=== PATIENT | female | born 1945 | race Caucasian/White ===

== ENCOUNTER 2017-07-04 13:06 | Observation (INO) | payer MEDICARE, SELFPAY | END 2017-07-06 12:15 | disposition home or self-care (01) | PROVIDERS: Admitting Provider Internal Medicine Adolescent Medicine; Emergency Provider Emergency Medicine; Family Provider Internal Medicine Adolescent Medicine; Visit Provider Internal Medicine Adolescent Medicine | DX: J44.1 Chronic obstructive pulmonary disease with (acute) exacerbation; R06.09 Other forms of dyspnea; I13.0 Hypertensive heart and chronic kidney disease with heart failure and stage 1 through stage 4 chronic kidney disease, or unspecified chronic kidney disease; I50.30 Unspecified diastolic (congestive) heart failure; N18.9 Chronic kidney disease, unspecified; E11.22 Type 2 diabetes mellitus with diabetic chronic kidney disease; Z79.4 Long term (current) use of insulin; J06.9 Acute upper respiratory infection, unspecified; G47.33 Obstructive sleep apnea (adult) (pediatric); J98.11 Atelectasis | CPT/HCPCS: 36415; 71010; 71020; 80048; 80053; 82803; 82962; 83605; 83880; 84484; 85025; 87040; 87070; 87275; 87276; 87430; 93005; 94640; 94760; 96365; 96367; 99285; G0378; J2405 ==

== ENCOUNTER 2017-07-13 20:52 | Observation (INO) | payer MEDICARE, SELFPAY ==
[2017-07-13 20:57] VITALS: BP 144/102; PULSE 76; RESP 26; TEMP 37.1; O2SAT 94; BMI 40.2
--- NOTE | 2017-07-13 21:20 | XR_ITS ---
XR chest 2V HISTORY: Cough and shortness of air ITS.REASON: SOA ORDERING PHYSICIAN: Haim Adams MD PATIENT AGE: 71 years COMPARISON: 07/05/2017 FINDINGS: The cardiomediastinal silhouette and pulmonary vascularity are within normal limits. No lobar consolidation or collapse. Previously described airspace disease no longer apparent. Faint nodular opacity is present in the left upper lobe measuring 9 mm. While this may be due to summation artifact, a developing nodule is also a consideration. There was a calcified granuloma in the left upper lobe on the previous CT scan of 12/04/2014 however this was more inferior than this nodule. The remaining lungs are clear... No acute bony abnormalities. IMPRESSION: 1. No acute airspace disease. 2. Possible developing left upper lobe nodule. CT or follow-up radiograph may be of further value for confirmation
[2017-07-13 21:33] LABS: Basophils % 0.3 % (0.1-2.0); Eosinophils # 0.1 K/mm3 (0.0-0.4); Eosinophils % 1.2 % (0.1-12.0); Hematocrit 40.2 % (37.0-47.0); Hemoglobin 13.3 g/dL (12.2-16.2); Lymphocytes # 1.4 K/mm3 (0.7-4.5); Lymphocytes % 19.4 K/mm3 (10-50); Mean Corpuscular HGB Conc 33.2 g/dL (31.8-35.4); Mean Corpuscular Hemoglobin 32.6 pg (27.0-31.2); Mean Corpuscular Volume 98.1 fl (81-99); Mean Platelet Volume 8.7 fl (7.4-10.4); Monocytes # 0.5 K/mm3 (0.1-1.0); Monocytes % 6.5 % (1.7-9.3); Neutrophils % 72.5 % (37.0-80.0); Platelet Count 154 K/mm3 (142-424); Red Cell Distribution Width 13.9 % (11.5-17.5); White Blood Count 6.9 K/mm3 (4.8-10.8)
[2017-07-13 21:44] LABS: Alanine Aminotransferase 18 U/L (12-78); Albumin Level 2.8 gm/dL (3.4-5.0); Albumin/Globulin Ratio 0.6 (1.1-1.8); Alkaline Phosphatase 156 U/L (46-116); Amylase 46 U/L (25-125); Anion Gap 11.6 mEq/L (5-15); Aspartate Amino Transferase 17 U/L (15-37); Bilirubin,Total 0.8 mg/dL (0.2-1.0); Blood Urea Nitrogen 14 mg/dL (7-18); Calcium 8.7 mg/dL (8.5-10.1); Carbon Dioxide 27 mmol/L (21.0-32.0); Chloride 100 mmol/L (98-107); Creatinine Clearance Estimated 62 mg/ml (0-300); Creatinine,Serum 1.34 mg/dL (0.55-1.02); Estimated Glomerular Filt Rate 39 ml/min (>60); GFR (African American) 47 ML/MIN (>60); Globulin 4.8 gm/dl (1.3-3.2); Glucose 115 mg/dL (74-106); Lipase 135 u/L (73-393); Potassium 4.6 mmoL/L (3.5-5.1); Sodium 134 mmol/L (136-145); Total Protein,Serum 7.6 gm/dL (6.4-8.2)
--- NOTE | 2017-07-13 21:55 | HMH.EDSOB ---
ED Disposition Clinical Impression: Drug-induced nausea and vomiting Disposition: Admitted as Observation Condition on Discharge: Good Instructions: DI for Diarrhea and Traveler's Diarrhea -- Adult, DI for Diarrhea and Traveler's Diarrhea -- Child, DI for Nausea -- Adult, DI for Nausea -- Child, Nausea and Vomiting-Adult Referrals: Haim Adams MD [Primary Care Provider] - - Critical Care Critical Care Time: No Attestation: On 07/13/17, the high probability of a clinically significant, sudden or life threatening deterioration of the following system(s) required my full and direct attention, intervention and personal management. The time I documented below is in addition to time spent performing reported procedures but includes the following listed in this critical care notation. Medical Decision Making - Medical Records Medical records reviewed: Yes: I reviewed the patient's medical records. Vital Signs: 07/13/17 20:57 Temperature 98.8 F Temperature Source Oral Pulse Rate [Brachial] 76 Respiratory Rate 26 H Blood Pressure [Right Arm] 144/102 Blood Pressure Mean [Right Arm] 116 Blood Pressure Position [Right Arm] Sitting 02 Sat by Pulse Oximetry 94 L Oxygen Delivery Method Room Air - Lab Data Lab results reviewed: Yes: I reviewed the patient's lab results. Lab Results 07/13/17 21:20: WBC 6.9, RBC 4.10 L, Hgb 13.3, Hct 40.2, MCV 98.1, MCH 32.6 H, MCHC 33.2, RDW 13.9, Plt Count 154, MPV 8.7, Neut % (Auto) 72.5, Lymph % (Auto) 19.4, [place] % (Auto) 6.5, Eos % (Auto) 1.2, Baso % (Auto) 0.3, Neut # (Auto) 5.0, Lymph # (Auto) 1.4, [place] # (Auto) 0.5, Eos # (Auto) 0.1, Baso # (Auto) 0.0 07/13/17 21:20: Sodium 134 L, Potassium 4.6, Chloride 100, Carbon Dioxide 27, Anion Gap 11.6, BUN 14, Creatinine 1.34 H, Estimated Creat Clear 62, Estimated GFR 39 L, Est GFR ( Amer) 47 L, Glucose 115 H, Calcium 8.7, Total Bilirubin 0.8, AST 17, ALT 18, Alkaline Phosphatase 156 H, Total Protein 7.6, Albumin 2.8 L, Globulin 4.8 H, Albumin/Globulin Ratio 0.6 L, Amylase 46, Lipase 135 07/13/17 21:20: Troponin I < 0.02 07/13/17 22:00: Urine Color Yellow, Urine Appearance Clear, Urine pH 7.0, Ur Specific [place] 1.010, Urine Protein Negative, Urine Glucose (UA) Negative, Urine Ketones Trace, Urine Blood Negative, Urine Nitrate Negative, Urine Bilirubin Negative, Urine Urobilinogen 2.0, Ur Leukocyte Esterase Negative, Urine WBC 3-5, Ur Squamous Epith Cells 3-5, Urine Bacteria 1+ Result diagrams: 07/13/17 21:20 07/13/17 21:20 Orders (Tests/Meds): ED MEDICATIONS Discontinued Medications Generic Name Dose Route Start Last Admin Trade Name Rashardq PRN Reason Stop Dose Admin Ondansetron HCl 4 mg 07/13/17 21:20 07/13/17 21:30 Zofran 4mg/2ml Vial IV 07/13/17 21:21 4 mg ONCE ONE Administration Sodium Chloride 0 ml 07/13/17 21:20 07/13/17 21:32 Sod Chloride 0.9% 1000ml Bag IV 07/13/17 21:21 1,000 ml BOLUS ONE Administration ORDERS Category Date Time Status XR chest 2V Stat Exams 07/13/17 21:20 Taken - Radiology Data #1 Image Reviewed: Yes I reviewed the patient's radiology results Preliminary Findings: Normal/NAD - ECG Data Tracing #1 I reviewed this ECG and interpreted as documented below: ECG initial impression date: 07/13/17 ECG initial impression time: 22:22 Ischemic changes: non-specific ST-T wave changes - Physician Consults Physician Consulted: soy Reason -: Admission - Suhail Inquiry Pt receiving controlled substance: No Resp/SOB HPI - General Chief Complaint: Nausea/Vomiting/Diarrhea Stated Complaint: vomiting X2 days Time Seen by Provider: 07/13/17 21:55 Mode of Arrival: Wheelchair Source of Information: Patient, Relative, Medical Record Limitations: No Limitations Description of Symptoms (Recalled from ER Triage Doc. by RN): PT COMES INTO THE ER C/O N/V, SOA - History of Present Illness pt with recent admit with copd on abx - minocycline and has
--- NOTE | 2017-07-13 21:58 | ED_ITS ---
ED Disposition Clinical Impression: Drug-induced nausea and vomiting Disposition: Admitted as Observation Condition on Discharge: Good Instructions: DI for Diarrhea and Traveler's Diarrhea -- Adult, DI for Diarrhea and Traveler's Diarrhea -- Child, DI for Nausea -- Adult, DI for Nausea -- Child, Nausea and Vomiting-Adult Referrals: Haim Adams MD [Primary Care Provider] - - Critical Care Critical Care Time: No Attestation: On 07/13/17, the high probability of a clinically significant, sudden or life threatening deterioration of the following system(s) required my full and direct attention, intervention and personal management. The time I documented below is in addition to time spent performing reported procedures but includes the following listed in this critical care notation. Medical Decision Making - Medical Records Medical records reviewed: Yes: I reviewed the patient's medical records. Vital Signs: 07/13/17 20:57 Temperature 98.8 F Temperature Source Oral Pulse Rate [Brachial] 76 Respiratory Rate 26 H Blood Pressure [Right Arm] 144/102 Blood Pressure Mean [Right Arm] 116 Blood Pressure Position [Right Arm] Sitting 02 Sat by Pulse Oximetry 94 L Oxygen Delivery Method Room Air - Lab Data Lab results reviewed: Yes: I reviewed the patient's lab results. Lab Results 07/13/17 21:20: WBC 6.9, RBC 4.10 L, Hgb 13.3, Hct 40.2, MCV 98.1, MCH 32.6 H, MCHC 33.2, RDW 13.9, Plt Count 154, MPV 8.7, Neut % (Auto) 72.5, Lymph % (Auto) 19.4, [place] % (Auto) 6.5, Eos % (Auto) 1.2, Baso % (Auto) 0.3, Neut # (Auto) 5.0 , Lymph # (Auto) 1.4, [place] # (Auto) 0.5, Eos # (Auto) 0.1, Baso # (Auto) 0.0 07/13/17 21:20: Sodium 134 L, Potassium 4.6, Chloride 100, Carbon Dioxide 27, Anion Gap 11.6, BUN 14, Creatinine 1.34 H, Estimated Creat Clear 62, Estimated GFR 39 L, Est GFR ( Amer) 47 L, Glucose 115 H, Calcium 8.7, Total Bilirubin 0.8, AST 17, ALT 18, Alkaline Phosphatase 156 H, Total Protein 7.6, Albumin 2.8 L, Globulin 4.8 H, Albumin/Globulin Ratio 0.6 L, Amylase 46, Lipase 135 07/13/17 21:20: Troponin I < 0.02 07/13/17 22:00: Urine Color Yellow, Urine Appearance Clear, Urine pH 7.0, Ur Specific [place] 1.010, Urine Protein Negative, Urine Glucose (UA) Negative, Urine Ketones Trace, Urine Blood Negative, Urine Nitrate Negative, Urine Bilirubin Negative, Urine Urobilinogen 2.0, Ur Leukocyte Esterase Negative, Urine WBC 3-5, Ur Squamous Epith Cells 3-5, Urine Bacteria 1+ Result diagrams: 07/13/17 21:20 07/13/17 21:20 Orders (Tests/Meds): ED MEDICATIONS Discontinued Medications Generic Name Dose Route Start Last Admin Trade Name Freq PRN Reason Stop Dose Admin Ondansetron HCl 4 mg 07/13/17 21:20 07/13/17 21:30 Zofran 4mg/2ml Vial IV 07/13/17 21:21 4 mg ONCE ONE Administration Sodium Chloride 0 ml 07/13/17 21:20 07/13/17 21:32 Sod Chloride 0.9% 1000ml Bag IV 07/13/17 21:21 1,000 ml BOLUS ONE Administration ORDERS Category Date Time Status XR chest 2V Stat Exams 07/13/17 21:20 Taken - Radiology Data #1 Image Reviewed: Yes I reviewed the patient's radiology results Preliminary Findings: Normal/NAD - ECG Data Tracing #1 I reviewed this ECG and interpreted as documented below: ECG initial impression date: 07/13/17 ECG initial impression time: 22:22 Ischemic changes: non-specific ST-T wav
[2017-07-13 22:11] LABS: Microscopic, Urine URINE MICROSCOPIC (MICROSCOPIC)
[2017-07-13 22:13] LABS: Appearance,Urine CLEAR (Clear); Blood, Urine Negative (Negative); Color,Urine YELLOW (Yellow); Glucose,Urine (UA) Negative (Negative); Ketones,Urine TRACE (Negative); Leukocyte Esterase,Urine Negative (Negative); Nitrate,Urine Negative (Negative); Protein,Urine Negative (Negative)
[2017-07-13 22:17] LABS: Troponin I < 0.02 ng/ml (0.00-0.06)
[2017-07-13 22:30] LABS: Bacteria,Urine 1+ /lpf; Bilirubin,Urine Negative (Negative)
--- NOTE | 2017-07-13 22:57 | PC.NURSE ---
ON THE PHONE WITH AT THIS TIME
[2017-07-13 23:23] VITALS: BP 110/55; PULSE 69; RESP 18; TEMP 37; O2SAT 98
[2017-07-14] VITALS (9 sets, daily range): BP systolic 106–142; BP diastolic 37–88; PULSE 48–82; RESP 16–20; TEMP 36.1–36.9; O2SAT 91–97; BMI 40.6
[2017-07-14 07:09] LABS: Blood Urea Nitrogen 12 mg/dL (7-18); Carbon Dioxide 26 mmol/L (21.0-32.0); Chloride 105 mmol/L (98-107); Creatinine Clearance Estimated 69 mg/ml (0-300); Creatinine,Serum 1.19 mg/dL (0.55-1.02); Estimated Glomerular Filt Rate 45 ml/min (>60); GFR (African American) 54 ML/MIN (>60); Glucose 87 mg/dL (74-106); Sodium 136 mmol/L (136-145)
[2017-07-14 07:14] LABS: Basophils % 0.2 % (0.1-2.0); Eosinophils # 0.1 K/mm3 (0.0-0.4); Eosinophils % 1.9 % (0.1-12.0); Hematocrit 35.1 % (37.0-47.0); Lymphocytes # 1.4 K/mm3 (0.7-4.5); Lymphocytes % 31.8 K/mm3 (10-50); Mean Corpuscular HGB Conc 32.1 g/dL (31.8-35.4); Mean Corpuscular Hemoglobin 31.7 pg (27.0-31.2); Mean Corpuscular Volume 98.7 fl (81-99); Monocytes # 0.3 K/mm3 (0.1-1.0); Monocytes % 7.1 % (1.7-9.3); Neutrophils # 2.5 K/mm3 (1.8-7.8); Neutrophils % 58.9 % (37.0-80.0); Platelet Count 113 K/mm3 (142-424); Red Blood Count 3.55 M/mm3 (4.20-5.40); Red Cell Distribution Width 13.9 % (11.5-17.5); White Blood Count 4.3 K/mm3 (4.8-10.8)
[2017-07-14 07:52] LABS: Hemoglobin 11.2 g/dL (12.2-16.2)
--- NOTE | 2017-07-14 08:39 | HMH.HP ---
*Admission Date: 07/13/17 *Chief complaint: vomiting *History of present illness: 71 year old female who was discharged was discharged 07/05 from [facility] for COPD exacerbation presented to the ED with ongoing nausea and vomiting. She was sent home on doxycycline which has likely caused her GI upset. States I haven't been able to keep anything down since I went home. Reports persistent cough with minimal sputum production. States shortness of breath has improved. In the ED, CXR was obtained and negative for acute pathology. CBC was unremarkable. She was noted to be dehydrated with creatinine slightly elevated at 1.34. Patient was admitted for rehydration and further evaluation. [facility] History Medical History: Reports:: Diabetes Mellitus Type 2 - *Social History Alcohol Intake: never - Psychiatric History Expresses thoughts of harming self/others: None Suicide Plan Description: No Plan Review of Systems - Constitutional Reports body ache(s), Denies fever(s), Denies headache(s), Denies night sweats - Eyes Denies itchy eyes - ENT Reports dry mouth, Denies nasal congestion, Denies pain with swallowing, Denies sore throat - *Cardiovascular Reports shortness of breath causing sudden awakening, Denies chest pain, Denies leg sores, Denies radiating jaw, neck or arm pain - *Respiratory Reports cough, Reports shortness of breath - *Gastrointestinal Reports vomiting, Denies abdominal pain, Denies change in bowel habits, Denies constipation, Denies loose stools - *Genitourinary Denies difficulty urinating, Denies blood in urine - *Musculoskeletal Denies joint pain, Denies muscle cramps - Integumentary/Breasts Denies dry skin, Denies new lesions - *Neurologic Reports weakness, Denies seizure-like activity, Denies dizziness, Denies tingling/numbness/burning sensations - Psychiatric Denies abnormal sleep pattern, Denies behavioral changes, Denies irritability, Denies memory loss - Endocrine Denies rapid, pounding, or irregular heartbeat, Denies increased hunger, Denies increased urination - Hematologic/Lymphatic Denies easy bleeding, Denies enlarged lymph nodes - Allergic/Immunologic Denies itchy eyes, Denies lip swelling, Denies seasonal runny nose Meds Home Medications Medication Instructions Recorded Confirmed Type Carvedilol [Carvedilol 12.5mg Tab] 12.5 mg PO DAILY 07/13/17 07/13/17 History Docusate Sodium [Colace 250mg 200 mg PO HS 07/13/17 07/13/17 History capsule] Furosemide [Lasix 80mg tablet] 80 mg PO DAILY 07/13/17 07/13/17 History Gabapentin [Gralise 600mg ER Tab] 600 mg PO DAILY 07/13/17 07/13/17 History raNITIdine HCl [Ranitidine HCl] 300 mg PO BID 07/13/17 07/13/17 History Allergies Allergy/AdvReac Type Severity Reaction Status Date / Time cyclobenzaprine Allergy Unknown RENAL Verified 07/13/17 21:11 [CYCLOBENZAPRINE] FAILURE hydromorphone [HYDROMORPHONE] Allergy Unknown Verified 07/13/17 21:11 pentazocine [PENTAZOCINE] Allergy Unknown Verified 07/13/17 21:11 Exam Vital signs and Labs for Last 24 Hours: Temp Pulse Resp BP Pulse Ox 97.0 F L 54 L 16 128/62 95 07/14/17 08:12 07/14/17 08:12 07/14/17 08:12 07/14/17 08:12 07/14/17 08:12 Short CBC 07/14/17 Range/Units 06:45 WBC 4.3 L D (4.8-10.8) K/mm3 Hgb 11.2 L D (12.2-16.2) g/dL Hct 35.1 L (37.0-47.0) % Plt Count 113 L D (142-424) K/mm3 BMP 07/14/17 06:45 Sodium 136 Potassium 4.0 Chloride 105 Carbon Dioxide 26 BUN 12 Creatinine 1.19 H Glucose 87 D no acute distress - *Routine HEENT Exam Head: Present: normocephalic Eye: Present: conjunctivae pink ENT: Present: mucous membranes moist - *Routine Neck Exam Present: supple - Routine Chest/Breast/Axilla Exam Comments: normal shape and expansion - *Routine Respiratory Exam Comments: scattered rhonchi on right, scattered wheezes, decent air movement - *Routine Cardiovascular Exam Present: RRR
--- NOTE | 2017-07-14 08:46 | P.HP_ITS ---
*Admission Date: 07/13/17 *Chief complaint: vomiting *History of present illness: 71 year old female who was discharged was discharged 07/05 from [facility] for COPD exacerbation presented to the ED with ongoing nausea and vomiting. She was sent home on doxycycline which has likely caused her GI upset. States I haven' t been able to keep anything down since I went home. Reports persistent cough with minimal sputum production. States shortness of breath has improved. In the ED, CXR was obtained and negative for acute pathology. CBC was unremarkable. She was noted to be dehydrated with creatinine slightly elevated at 1.34. Patient was admitted for rehydration and further evaluation. [facility] History Medical History: Reports:: Diabetes Mellitus Type 2 - *Social History Alcohol Intake: never - Psychiatric History Expresses thoughts of harming self/others: None Suicide Plan Description: No Plan Review of Systems - Constitutional Reports body ache(s), Denies fever(s), Denies headache(s), Denies night sweats - Eyes Denies itchy eyes - ENT Reports dry mouth, Denies nasal congestion, Denies pain with swallowing, Denies sore throat - *Cardiovascular Reports shortness of breath causing sudden awakening, Denies chest pain, Denies leg sores, Denies radiating jaw, neck or arm pain - *Respiratory Reports cough, Reports shortness of breath - *Gastrointestinal Reports vomiting, Denies abdominal pain, Denies change in bowel habits, Denies constipation, Denies loose stools - *Genitourinary Denies difficulty urinating, Denies blood in urine - *Musculoskeletal Denies joint pain, Denies muscle cramps - Integumentary/Breasts Denies dry skin, Denies new lesions - *Neurologic Reports weakness, Denies seizure-like activity, Denies dizziness, Denies tingling/numbness/burning sensations - Psychiatric Denies abnormal sleep pattern, Denies behavioral changes, Denies irritability, Denies memory loss - Endocrine Denies rapid, pounding, or irregular heartbeat, Denies increased hunger, Denies increased urination - Hematologic/Lymphatic Denies easy bleeding, Denies enlarged lymph nodes - Allergic/Immunologic Denies itchy eyes, Denies lip swelling, Denies seasonal runny nose Meds Home Medications Medication Instructions Recorded Confirmed Type Carvedilol [Carvedilol 12.5mg Tab] 12.5 mg PO DAILY 07/13/17 07/13/17 History Docusate Sodium [Colace 250mg 200 mg PO HS 07/13/17 07/13/17 History capsule] Furosemide [Lasix 80mg tablet] 80 mg PO DAILY 07/13/17 07/13/17 History Gabapentin [Gralise 600mg ER Tab] 600 mg PO DAILY 07/13/17 07/13/17 History raNITIdine HCl [Ranitidine HCl] 300 mg PO BID 07/13/17 07/13/17 History Allergies Allergy/AdvReac Type Severity Reaction Status Date / Time cyclobenzaprine Allergy Unknown RENAL Verified 07/13/17 21:11 [CYCLOBENZAPRINE] FAILURE hydromorphone [HYDROMORPHONE] Allergy Unknown Verified 07/13/17 21:11 pentazocine [PENTAZOCINE] Allergy Unknown Verified 07/13/17 21:11 Exam Vital signs and Labs for Last 24 Hours: Temp Pulse Resp BP Pulse Ox 97.0 F L 54 L 16 128/62 95 07/14/17 08:12 07/14/17 08:12 07/14/17 08:12 07/14/17 08:12 07/14/17 08:12 Short CBC 07/14/17 Range/Units 06:45 WBC 4.3 L D (4.8-10.8) K/mm3 Hgb 11.2 L D (12.2-16.2) g/dL Hct 35.1 L (37.0-47.0)
--- NOTE | 2017-07-14 09:19 | PC.NURSE ---
Spoke with pain management regarding patients pain pump bolus. Pain management states pt is ok to bolus self.
--- NOTE | 2017-07-14 09:38 | CARE MANAGER ---
MS NOWAK WAS ADMITTED WITH WEAKNESS AND NAUSEA/VOMITING. SHE IS A CHRONIC PAIN PERSON WHO AT TIMES TAKES TOO MUCH OF HER PAIN MEDS RESULTING IN ISSUES WITH HER GI TRACT. SHE IS ADMITTED TO [facility] FOR MONITORING,IVF'S,IV ANTIEMETICS,CONTROL OF PAIN MEDS AND DIET RESTRICTIONS. IF ALL GOES WELL SHE MAY BE ABLE TO BE DISCHARGED IN 1-2 DAYS. CM STAFF WILL CONTINUE TO MONITOR AND ASSIST NEEDED.
--- NOTE | 2017-07-14 10:04 | P.CONPHA_ITS ---
[facility] Pharmacy VTE Monitoring - Patient Demographics Admission date: 07/13/17 Report Date: 07/14/17 Time: 10:03 Allergies/Adverse Reactions: cyclobenzaprine [CYCLOBENZAPRINE] Allergy (Unknown, Verified 07/13/17 21:11) RENAL FAILURE hydromorphone [HYDROMORPHONE] Allergy (Unknown, Verified 07/13/17 21:11) pentazocine [PENTAZOCINE] Allergy (Unknown, Verified 07/13/17 21:11) Height: 1.57 m Weight: 99.904 kg Patient Problems: Current Active Problems Drug-induced nausea and vomiting (Acute) Dehydration (Acute) COPD exacerbation (Acute) - VTE Risk Labs: VTE Related Lab Results Hgb 11.2 g/dL (12.2-16.2) L D 07/14/17 06:45 Hct 35.1 % (37.0-47.0) L 07/14/17 06:45 Plt Count 113 K/mm3 (142-424) L D 07/14/17 06:45 BUN 12 mg/dL (7-18) 07/14/17 06:45 Creatinine 1.19 mg/dL (0.55-1.02) H 07/14/17 06:45 Estimated Creat Clear 69 mg/ml (0-300) 07/14/17 06:45 Was VTE Risk Assessment Performed: Yes VTE Score: 4 VTE Risk Level: Low Risk - Prophylaxis Types of VTE Prophylaxis: TEDS Knee High Location of Applied Device: Bilateral Lower Extremeties
[2017-07-14 12:08] LABS: POC Glucose,Bedside 95 mg/dL
--- NOTE | 2017-07-14 15:54 | PC.NURSE ---
Lungs diminished. Pt remains on 2l nasal cannula with no distress noted. Breathing is even and non labored. Pt reports nausea. Treated with zofran q6hr per mar with some relief reported. Pt denied any vomiting. She has ambulated to and from bathroom with standby assist. Tolerating clear diet thus far. Will continue to monitor.
[2017-07-14 16:43] LABS: POC Glucose,Bedside 70 mg/dL
[2017-07-15 00:11] VITALS: PULSE 47
[2017-07-15 00:20] LABS: POC Glucose,Bedside 154 mg/dL
[2017-07-15 04:00] VITALS: BP 106/41; PULSE 56; RESP 20; TEMP 36.6; O2SAT 96
--- NOTE | 2017-07-15 04:42 | PC.NURSE ---
PATIENT HAS SLEPT SOME THIS SHIFT. SHE C/O DIARRHEA EARLIER IN THE DAY AND REQUESTED SOMETHING FOR IT. MD WAS NOTIFIED AND TO WAS GIVEN TO OBTAIN STOOL SPECIMEN. PATIENT WAS INFORMED OF THIS AND VERBALIZED UNDERSTANDING. SHE HAS NOT HAD ANY DIARRHEA EPISODES SINCE THE ORDER FOR THE PCR WAS OBTAINED. SHE HAS ONLY HAD C/O NAUSEA X1 AND RECEIVED ZOFRAN WHICH SHE STATED WAS EFFECTIVE. SHE ALSO C/O DISCOMFORT TO HER BACK AND BLE AND WAS GIVEN TYLENOL X1. PATIENT HAS ALSO BOLUSED WITH HER IMPLANTED PAIN PUMP X2. PATIENT IS CURRENTLY SLEEPING IN BED. NO OTHER PROBLEMS NOTED AT THIS TIME. VSS. WILL CONTINUE TO MONITOR. SAFETY MEASURES IN PLACE, CALL LIGHT IN REACH.
[2017-07-15 06:25] VITALS: PULSE 56; O2SAT 90
[2017-07-15 06:36] LABS: POC Glucose,Bedside 81 mg/dL
[2017-07-15 08:00] VITALS: BP 114/51; PULSE 58; RESP 16; RESP 20; TEMP 36.6; O2SAT 95
--- NOTE | 2017-07-15 08:28 | P.DS_ITS ---
General - General Admission date: 07/13/17 Discharge date: 07/15/17 HPI HPI: 71-year-old white female with multiple medical problems including morbid obesity , COPD with oxygen requirement, and chronic narcotic dependence with opioid pain pump in place, who came to the emergency department with nausea and vomiting. In the emergency department her labs were normal but she was significantly afflicted by nausea and vomiting, admitted to hospital for clear liquid diet and supportive care. Please see H&P for details. Objective Vital signs: Temp Pulse Resp BP Pulse Ox 97.8 F 56 L 20 106/41 90 L 07/15/17 04:00 07/15/17 06:25 07/15/17 04:00 07/15/17 04:00 07/15/17 06:25 Narrative: Since discharge exam this morning reveals that she is pleasant, talkative, alert. Lungs have scattered rhonchi at her baseline, heart rate regular, abdomen soft but her morbid obesity limits her examination accuracy and complicates all aspects of her care. She has no jaundice, scleral icterus and appears well-hydrated. She is eating 100% of her breakfast. Hospital Course Hospital Course: Patient was admitted, placed on IV fluids, tolerated this well, Zofran was given for nausea. This improved slowly in a stepwise fashion. She had no evidence of leukocytosis and no fever, other testing was unremarkable. This morning she was improving, able to tolerate diet, no further nausea and she will be discharged home. She will follow-up in my office as scheduled 3 days. Results Labs on day of discharge: Labs from last 24 hours 07/15/17 07/14/17 07/14/17 06:14 20:54 16:32 POC Glucose 81 154 70 07/14/17 11:54 POC Glucose 95 DS: Diagnosis - Discharge Diagnosis (1) COPD exacerbation Status: Acute (2) Dehydration Status: Acute (3) Drug-induced nausea and vomiting Status: Acute Meds Home Medications Medication Instructions Recorded Confirmed Type Carvedilol [Carvedilol 12.5mg Tab] 12.5 mg PO DAILY 07/13/17 07/13/17 History Docusate Sodium [Colace 250mg 200 mg PO HS 07/13/17 07/13/17 History capsule] Furosemide [Lasix 80mg tablet] 80 mg PO DAILY 07/13/17 07/13/17 History Gabapentin [Gralise 600mg ER Tab] 600 mg PO DAILY 07/13/17 07/13/17 History raNITIdine HCl [Ranitidine HCl] 300 mg PO BID 07/13/17 07/13/17 History Allergies Allergy/AdvReac Type Severity Reaction Status Date / Time cyclobenzaprine Allergy Unknown RENAL Verified 07/13/17 21:11 [CYCLOBENZAPRINE] FAILURE hydromorphone [HYDROMORPHONE] Allergy Unknown Verified 07/13/17 21:11 pentazocine [PENTAZOCINE] Allergy Unknown Verified 07/13/17 21:11 Disposition Disposition: Home, Self-Care
--- NOTE | 2017-07-15 11:00 | CARE MANAGER ---
MS NOWAK IS DISCHARGING HOME WITH AFTERCARE INSTRUCTIONS.
[2017-07-15 11:26] LABS: POC Glucose,Bedside 125 mg/dL
== END 2017-07-15 12:30 | disposition home or self-care (01) ==
LOC: ER 23:03 → 2ND 23:18
PROVIDERS: Admitting Provider Internal Medicine Adolescent Medicine; Emergency Provider Emergency Medicine; Family Provider Internal Medicine Adolescent Medicine; PCP Internal Medicine Adolescent Medicine; Visit Provider Internal Medicine Adolescent Medicine
DX: J44.1 Chronic obstructive pulmonary disease with (acute) exacerbation (principal); R11.2 Nausea with vomiting, unspecified; T50.905A Adverse effect of unspecified drugs, medicaments and biological substances, initial encounter; E11.9 Type 2 diabetes mellitus without complications; E86.0 Dehydration; Z99.81 Dependence on supplemental oxygen
CPT/HCPCS: 36415; 71046; 80048; 80053; 81001; 82150; 82962; 83690; 84484; 85025; 93005; 93041; 94640; 94760; 94761; 99283; G0378; J2405

== ENCOUNTER 2017-07-27 13:16 | Day surgery (SDC) | payer MEDICARE, SELFPAY ==
[2017-07-27 13:58] VITALS: BP 116/53; PULSE 62; RESP 20; TEMP 36.6; O2SAT 95; BMI 37.5
--- NOTE | 2017-07-27 14:39 | HMH.PMPROC ---
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 Post-procedure Diagnosis:: Same Indications for Procedure:: Patient is a pleasant 71-year-old white female who we are treating for low back pain with lumbar radiculopathy symptoms and postlaminectomy syndrome. She currently has an intrathecal pain pump currently going at 1.75 mg per day. She is doing well with her intrathecal pain pump. She does not use her bolus as often as she should. We will refill her pump and continue her at 1.75 mg per day of intrathecal morphine. Procedure Details:: Informed consent was obtained and the risks and benefits of the procedure was explained to the patient. The patient was taken to the procedure room. The pump was interrogated. The area over the pump was prepped using ChloraPrep. The pump was accessed with a 22-gauge needle. Approximately 8 mL's of the intrathecal solution was withdrawn and discarded. The pump was then refilled with 20 mL's of intrathecal morphine 15 mg per ml. The pump was interrogated and the infusion was continued at 1.75 mg per day. The patient tolerated the procedure well with no complication. Plan and Disposition:: We will follow-up with her at her next pump refill. If she has any problems or questions she is to call us in the pain clinic.
[2017-07-27 14:44] VITALS: BP 136/63; PULSE 78; RESP 20; O2SAT 97
[2017-07-27 14:45] VITALS: BP 138/75; PULSE 88; RESP 20; O2SAT 98
[2017-07-27 15:15] VITALS: BP 128/62; PULSE 54; RESP 16; O2SAT 97
== END 2017-07-27 15:17 | disposition home or self-care (01) ==
LOC: SC.PAINP 13:18
PROVIDERS: Family Provider Internal Medicine Adolescent Medicine; PCP Internal Medicine Adolescent Medicine; Visit Provider Nurse Anesthetist, Certified Registered
DX: M51.16 Intervertebral disc disorders with radiculopathy, lumbar region (principal); M96.1 Postlaminectomy syndrome, not elsewhere classified
CPT/HCPCS: 95991

== ENCOUNTER → 2017-12-22 10:16 | Outpatient (CLI) | payer MEDICARE, SELFPAY ==
--- NOTE | 2017-12-22 10:25 | CA_ITS ---
PROCEDURE: 2-D M-mode and color Doppler study INDICATIONS FOR THE TEST: Chest pain COPD+ Heart Murmur Tobacco Smoking+ Palpitations Fatigue Syncope Edema+ Hypertension+Diabetes Mellitus+ Rheumatic Fever SOB+HOYT Obesity+Hyperlipidemia Family History HD+ Additional History home oxygen PATIENT INFORMATION HEIGHT: 62 WEIGHT: 230 GENDER: Female B/P: 106/41 2-D/M-MODE INTERPRETATION: 2-D MEASUREMENTS OBSERVED VALUES IN CMS Right Ventricular Dimension (RVDd) 2.1 Interventricular Septum (Thickness)(IVsd) 1.1 Left Ventricular Internal Dimensions(LVIDd) 3.3 Left Ventricular Posterior Wall (Thickness)(LVPWd) 1.1 Aortic Root 3.1 Aortic Cusp Separation 2.1 Left Atrial Dimensions (LAD) 3.2 2D 1. Left atrium is mildly enlarged, left ventricle is normal size, mild concentric left ventricular hypertrophy, visually estimated ejection fraction 55% with no obvious regional wall motion abnormality. 2. The right atrium and right ventricle are normal size and contractility. 3. The aortic valve is minimally thickened and fibrosed. 4. The mitral and tricuspid valve are grossly normal. 5. The pulmonic valve is poorly visualized. 6. No significant pericardial effusion noted. DOPPLER INTERROGATION: Doppler interrogation of the aortic, mitral and tricuspid valvular presence of mild mitral and tricuspid regurgitation, tricuspid and jet velocity insufficient for calculation of the right ventricular systolic pressure, grade 1 diastolic dysfunction seen with tissue Doppler evidence of raised left atrial pressure. CONCLUSION: 1. Left atrium is mildly enlarged, left ventricle is normal size, mild concentric left ventricular hypertrophy, visually estimated ejection fraction 55% with no obvious regional wall motion abnormality. Grade 1 diastolic dysfunction seen with tissue Doppler evidence of raised left atrial pressure. 2. Mild mitral and tricuspid regurgitation 3. No significant pericardial effusion noted.
[2017-12-22 11:02] LABS: Basophils % 0.8 % (0.1-2.0); Eosinophils # 0.2 K/mm3 (0.0-0.4); Eosinophils % 4.4 % (0.1-12.0); Hematocrit 39.3 % (37.0-47.0); Hemoglobin 12.9 g/dL (12.2-16.2); Lymphocytes # 1.4 K/mm3 (0.7-4.5); Lymphocytes % 31.8 K/mm3 (10-50); Mean Corpuscular HGB Conc 32.8 g/dL (31.8-35.4); Mean Corpuscular Hemoglobin 32.1 pg (27.0-31.2); Mean Corpuscular Volume 97.7 fl (81-99); Mean Platelet Volume 9.5 fl (7.4-10.4); Monocytes # 0.3 K/mm3 (0.1-1.0); Monocytes % 7.6 % (1.7-9.3); Neutrophils # 2.4 K/mm3 (1.8-7.8); Neutrophils % 55.4 % (37.0-80.0); Platelet Count 98 K/mm3 (142-424); Red Blood Count 4.02 M/mm3 (4.20-5.40); White Blood Count 4.3 K/mm3 (4.8-10.8)
[2017-12-22 11:41] LABS: Alanine Aminotransferase 21 U/L (12-78); Albumin Level 3.3 gm/dL (3.4-5.0); Albumin/Globulin Ratio 0.9 (1.1-1.8); Alkaline Phosphatase 176 U/L (46-116); Anion Gap 14.4 mEq/L (5-15); Aspartate Amino Transferase 25 U/L (15-37); Bilirubin,Total 0.6 mg/dL (0.2-1.0); Blood Urea Nitrogen 27 mg/dL (7-18); Calcium 8.7 mg/dL (8.5-10.1); Carbon Dioxide 32 mmol/L (21.0-32.0); Chloride 96 mmol/L (98-107); Chol/HDL Ratio 5.4 (1-3.5); Cholesterol 179 mg/dL (140-200); Creatinine,Serum 1.84 mg/dL (0.55-1.02); Estimated Glomerular Filt Rate 27 ml/min (>60); GFR (African American) 33 ML/MIN (>60); Globulin 3.5 gm/dl (1.3-3.2); Glucose 120 mg/dL (74-106); HDL Cholesterol 33 mg/dL (29-89); LDL Cholesterol 105 mg/dL (0-130); Magnesium 1.6 mg/dL (1.4-2.2); Potassium 4.4 mmoL/L (3.5-5.1); Sodium 138 mmol/L (136-145); Thyroid Stimulating Hormone 2.05 uIU/ml (0.358-3.740); Total Protein,Serum 6.8 gm/dL (6.4-8.2); Triglycerides 205 mg/dL (30-200); VLDL Cholesterol 41 mg/dL (0-40)
[2017-12-22 12:13] LABS: Hemoglobin A1C 6.8 % (0.0-7.0)
[2017-12-23 10:17] LABS: Creatinine, Urine 12.1 mg/dL (Not Estab.); Microalbumin, Urine <3.0 ug/mL (Not Estab.)
== END ==
PROVIDERS: Family Provider Internal Medicine Adolescent Medicine; PCP Internal Medicine Adolescent Medicine; Visit Provider Nurse Practitioner Family
DX: R06.02 Shortness of breath (principal); R60.9 Edema, unspecified; E11.42 Type 2 diabetes mellitus with diabetic polyneuropathy
CPT/HCPCS: 36415; 80053; 80061; 82043; 82570; 83036; 83735; 83880; 84443; 85025; 93306

== ENCOUNTER → 2018-04-03 11:06 | Outpatient (POV) | payer MEDICARE, SELFPAY ==
--- NOTE | 2018-04-03 11:36 | HMH.PMPROC ---
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 Patient patient is currently on a periodic flow of 0.25 mg every 2 hours. Patient denies any side effects to his her medication. Patient would like a slight increase in her rates her pain today a 6 out of 10. Physical Exam General: Alert and oriented x3, no acute distress, pleasant and cooperative, [on room air] Lungs: Resps E/U, Symmetrical chest expansion, Eyes: PERRL Musculoskeletal: Flexion and extension of lumbar spine somewhat guarded secondary to pain, deep tendon reflexes normal, strength in upper and lower extremities [5/5], [abnormal gait noted] Neurological: speech clear, sound printer equal, no gross sensory deficits Procedure Details:: Informed consent was obtained and the risk and benefits of the procedure were explained to the patient. The patient was taken to the procedure room where noninvasive monitoring was placed including noninvasive blood pressure cuff and pulse oximeter. Patient's pump was interrogated. The infusion rate was increased to 0.3 mg every 2 hours for total daily dose of 3.6 mg. The patient tolerated the procedure well. Plan and Disposition:: I will follow-up with the patient at her next intrathecal pain pump refill and reprogram. Patient has been instructed to call the office if she has any issues prior to her next appointment. This note was dictated using voice recognition software and may contain errors or omissions
== END ==
PROVIDERS: Family Provider Internal Medicine Adolescent Medicine; PCP Internal Medicine Adolescent Medicine; Visit Provider Clinical Nurse Specialist Family Health
DX: M51.16 Intervertebral disc disorders with radiculopathy, lumbar region (principal); M96.1 Postlaminectomy syndrome, not elsewhere classified
CPT/HCPCS: 62368

== ENCOUNTER 2018-04-26 11:00 | Outpatient (RCR) | payer MEDICARE, SELFPAY | END 2018-04-26 11:01 | disposition home or self-care (01) | LOC: PT 11:00 | PROVIDERS: Family Provider Internal Medicine Adolescent Medicine; PCP Internal Medicine Adolescent Medicine; Visit Provider Internal Medicine Adolescent Medicine | DX: I89.0 Lymphedema, not elsewhere classified (principal) | CPT/HCPCS: 97110; 97140; 97163; 97760 ==

== ENCOUNTER → 2018-07-24 15:12 | Outpatient (CLI) | payer MEDICARE, SELFPAY ==
--- NOTE | 2018-07-24 15:15 | MM_ITS ---
MM Dig screening mamm BI w/CAD CAD Screening COMPARISON: Digital mammograms with CAD 09/27/2016 and 06/02/2015 INDICATION: There is a history of breast cancer in patient's daughter diagnosed at age 39. TECHNIQUE: Standard CC and MLO images were obtained. R2 CAD reviewed. FINDINGS: The breasts are composed primarily of fat with minimal scattered fiber glandular densities in each breast. Positioning was somewhat difficult due to the fact the patient is in a wheelchair post previous stroke. Additional cc views and MLO views were obtained. There are few scattered benign-appearing microcalcifications in each breast. There is no suspicious lesion and there are no suspicious microcalcifications. IMPRESSION: Fatty type breast parenchyma with no suspicious lesion seen BI-RADS Category: 2 Benign Finding(s) RECOMMENDED FOLLOW-UP: 1YR - 1 YEAR FOLLOW-UP (A letter has been sent to the patient regarding results of the study.)
--- NOTE | 2018-07-24 15:16 | XR_ITS ---
XR DEXA axial skeleton HISTORY: ITS.REASON: OSTEOPAROSIS ORDERING PHYSICIAN: Denita Barrios PATIENT AGE: 72 years COMPARISON: 05/29/2014 FINDINGS: The BMD measured at the Left femoral neck is 0.650 g/cm squared with a T score of -2.8. This is considered Osteoporotic according to the World Health Organization criteria. Fracture risk is High. Treatment is advised. The bone density of the hips has increased by 3% compared to the previous exam IMPRESSION: Osteoporosis with high fracture risk. Treatment is advised. Recommend follow-up exam July 2019
== END ==
PROVIDERS: PCP Nurse Practitioner Family; Visit Provider Nurse Practitioner Family
DX: Z12.31 Encounter for screening mammogram for malignant neoplasm of breast (principal); Z13.820 Encounter for screening for osteoporosis; M81.0 Age-related osteoporosis without current pathological fracture
CPT/HCPCS: 77067; 77080

== ENCOUNTER 2018-11-29 10:00 | Outpatient (RCR) | payer MEDICARE, SELFPAY ==
--- NOTE | 2018-10-04 15:24 | HMH.PTOPWND ---
Rehab Outpt Wound Evaluation Rehab OP Wound Evaluation Start: 10/04/18 15:13 Freq: Status: Active Protocol: Document 10/04/18 15:15 PHOMARILIA (Rec: 10/04/18 15:24 PHORNE [id number]) Electronically Signed By Allen Busby, PT 10/04/18 15:15 Subjective/History History History Pt is a 72 yowf who presents with c/o juvenal LE edema for many years and new onset right lateral lower leg wound x ~ 1 mo. She reports hitting her leg on her w/c to cause her wound which they have been dressing at home and is very painful. Her family has been performing her compression wrapping at home which helps, but her edema has continued. She has hx of DM-II, HTN, COPD requiring supplemental O2 at night, CHF, and chronic back pain with intrathecal morphine pump. Wound Eval Wound Right Lateral Gleason Wound Type Puncture Is This a Chronic Wound No Wound Length (cm) 1.0 Wound Width (cm) 0.4 Wound Bed Appearance Fuig Wound Margins Description Well Defined Surrounding Tissue Appearance Fuig Edema Type Pitting Edema Degree 2+ Query Text:1+ Trace, Barely Detectable, Rebound 15-30 seconds 2+ Moderate, Slight Indentation, Rebound 10-20 seconds 3+ Deep, Deeper Indentation, Rebound > 30 seconds 4+ Very Deep, Rebound > 60 seconds Edema Appearance Weeping Tight Hard Surrounding Tissue Temperature Warm Drainage Description Serous Drainage Amount Small Wound Topical Solution/Irrigant Saline Irrigant Antibiotic Irrigant Primary Dressing Composite Dressing Change Patient Tolerance Tolerated Well Lymphedema Eval Classification of Lymphedema Secondary Lymphedema Yes Stemmer's sign Stemmer's Sign no Stage of Lymphedema Lymphedema stages Stage II (Pitting edema, increased fibrosis w/ decreased pitting) Skin Changes Dry Skin Yes Taut, Shiny Skin Yes Redness Yes Blisters Yes Wounds Yes
--- NOTE | 2018-11-08 10:19 | HMH.RHREAS ---
Rehab Reassessment Rehab OP Re-assessment Start: 11/08/18 10:16 Freq: Status: Active Protocol: Document 11/08/18 10:16 ERIKA (Rec: 11/08/18 10:19 ERIKA [id number]) Electronically Signed By Allen Busby, PT 11/08/18 10:16 Rehab Re-assessment Subjective Subjective Pt continues to c/o pain and tenderness throughout right lower leg. Objective Objective Notes Right lateral hinojosa wound: Length= 1.0 cm, Width= 0.5 cm Assessment Progress Assessment Slower Than Expected Assessment Notes Edema appears to be decreasing , but remains 2+ pitting. Wound with less depth, but length and width dimensions remain the same. Goals Not Met ST,2,3,4,5 LT,2,3, 4,5,6,7 Revised Goals none Plan Plan Continue per initial POC. Frequency of Therapy 2 x/wk Duration of therapy 8 wks Time and Billing Re-Eval Time 15 Re-Eval Billing Units 1 PHYSICIAN CERTIFICATION: I certify the specified therapy services for Caryl Anthony are required, authorized, and reviewed every 30 days.
== END 2018-11-29 10:05 | disposition home or self-care (01) ==
LOC: PT 10:00
PROVIDERS: Visit Provider Internal Medicine Adolescent Medicine
DX: I89.0 Lymphedema, not elsewhere classified (principal)
CPT/HCPCS: 29580; 97140; 97163; 97164; 97597

== ENCOUNTER → 2019-03-06 14:50 | Outpatient (CLI) | payer MEDICARE, SELFPAY ==
[2019-03-06 15:23] LABS: Basophils # 0.1 K/mm3 (0-0.2); Basophils % 1.2 % (0.1-2.0); Eosinophils # 0.3 K/mm3 (0.0-0.4); Eosinophils % 5.6 % (0.1-12.0); Hematocrit 39.7 % (37.0-47.0); Hemoglobin 13.3 g/dL (12.2-16.2); Lymphocytes # 1.6 K/mm3 (0.7-4.5); Mean Corpuscular HGB Conc 33.5 g/dL (31.8-35.4); Mean Corpuscular Hemoglobin 32.2 pg (27.0-31.2); Mean Corpuscular Volume 96.3 fl (81-99); Mean Platelet Volume 9.1 fl (7.4-10.4); Monocytes # 0.3 K/mm3 (0.1-1.0); Monocytes % 6.9 % (1.7-9.3); Neutrophils # 2.5 K/mm3 (1.8-7.8); Neutrophils % 52.2 % (37.0-80.0); Platelet Count 116 K/mm3 (142-424); Red Blood Count 4.12 M/mm3 (4.20-5.40); Red Cell Distribution Width 13.7 % (11.5-17.5); White Blood Count 4.7 K/mm3 (4.8-10.8)
[2019-03-06 16:32] LABS: Amphetamine/Metha Screen,Urine Negative ng/mL (<1000); Barbiturates Screen,Urine Negative ng/mL (<200); Benzodiazepines Screen,Urine Negative ng/mL (<200); Cannabinoid Screen,Urine Negative ng/mL (<50); Cocaine Screen,Urine Negative ng/mL (<300); Methadone Screen,Urine Negative ng/mL (<300); Opiate Screen,Urine Positive ng/mL (<300); Phencyclidine Screen,Urine Negative ng/mL (<25)
[2019-03-06 18:15] LABS: Alanine Aminotransferase 27 U/L (12-78); Albumin Level 3.7 gm/dL (3.4-5.0); Albumin/Globulin Ratio 1.1 (1.1-1.8); Alkaline Phosphatase 131 U/L (46-116); Anion Gap 10.2 mEq/L (5-15); Aspartate Amino Transferase 27 U/L (15-37); Bilirubin,Total 0.7 mg/dL (0.2-1.0); Blood Urea Nitrogen 28 mg/dL (7-18); Calcium 9.2 mg/dL (8.5-10.1); Carbon Dioxide 33 mmol/L (21.0-32.0); Chloride 94 mmol/L (98-107); Chol/HDL Ratio 4.7 (1-3.5); Cholesterol 177 mg/dL (140-200); Creatinine,Serum 1.66 mg/dL (0.55-1.02); Estimated Glomerular Filt Rate 30 ml/min (>60); GFR (African American) 37 ML/MIN (>60); Globulin 3.4 gm/dl (1.3-3.2); Glucose 94 mg/dL (74-106); HDL Cholesterol 38 mg/dL (29-89); LDL Cholesterol 108 mg/dL (0-130); Potassium 4.2 mmoL/L (3.5-5.1); Sodium 133 mmol/L (136-145); Thyroid Stimulating Hormone 1.29 uIU/ml (0.358-3.740); Total Protein,Serum 7.1 gm/dL (6.4-8.2); Triglycerides 153 mg/dL (30-200); VLDL Cholesterol 31 mg/dL (0-40)
[2019-03-06 18:38] LABS: Hemoglobin A1C 6.5 % (0.0-7.0)
[2019-03-08 10:14] LABS: Creatinine, Urine 10.6 mg/dL (Not Estab.); Microalbumin, Urine <3.0 ug/mL (Not Estab.)
[2019-03-08 12:36] LABS: Vitamin D 25 Hydroxy 5.7 ng/mL (30.0-100.0)
[2019-03-13 01:08] LABS: Codeine Negative (Cutoff=100); Hydrocodone Negative (Cutoff=100); Hydromorphone Negative (Cutoff=100); Morphine Positive (.)
[2019-03-13 06:50] LABS: Opiates Positive (.)
== END ==
PROVIDERS: Clinical Nurse Specialist Family Health; Visit Provider Nurse Practitioner Family
DX: E11.42 Type 2 diabetes mellitus with diabetic polyneuropathy (principal); Z79.899 Other long term (current) drug therapy; N18.3 Chronic kidney disease, stage 3 (moderate); M81.0 Age-related osteoporosis without current pathological fracture; Z79.4 Long term (current) use of insulin
CPT/HCPCS: 36415; 80053; 80061; 80305; 80361; 80365; 82043; 82570; 82652; 83036; 84443; 85025; G0480